=== PATIENT | female | born 1945 | race Caucasian/White ===

== ENCOUNTER 2020-06-12 05:58 | Observation (INO) | payer MEDICARE ==
[2020-06-12 07:08] LABS: ABSOLUTE BASOPHILS # (AUTO) 0.1 10^3/uL (0.0-0.2); ABSOLUTE EOSINOPHILS # (AUTO) 0.4 10^3/uL (0.0-0.6); ABSOLUTE LYMPHOCYTES (AUTO) 3.8 10^3/uL (0.5-4.7); ABSOLUTE NEUT (AUTO) 8.6 10^3/uL (1.7-8.2); BASOPHILS % (AUTO) 0.6 % (0-2); EOSINOPHILS % (AUTO) 2.6 % (0-6); HEMATOCRIT 37.3 % (36.0-47.0); HEMOGLOBIN 12.7 g/dL (12.0-15.5); LYMPHOCYTES % (AUTO) 27.3 % (13-45); MEAN CORPUSCULAR HEMOGLOBIN 29.1 pg (27.0-33.4); MEAN CORPUSCULAR VOLUME 86 fl (80-97); MONOCYTES % (AUTO) 7.1 % (3-13); PLATELET COUNT 464 10^3/uL (150-450); RED BLOOD COUNT 4.35 10^6/uL (3.72-5.28); RED CELL DISTRIBUTION WIDTH 13.4 % (11.5-14.0); SEGMENTED NEUTROPHILS % (AUTO) 62.4 % (42-78); TOTAL CELLS COUNTED % (AUTO) 100 %; WHITE BLOOD COUNT 13.8 10^3/uL (4.0-10.5)
[2020-06-12] MEDS: NORMAL SALINE 1000 ML 1,000 ML IV PRN ×3 (07:13→20:33)
[2020-06-12 07:15] LABS: INTERNATIONAL RATION (INR) 0.87; PROTHROMBIN TIME 12.1 SEC (11.4-15.4)
--- NOTE | 2020-06-12 07:15 | ER Document Report ---
ED General - General Chief Complaint: Rectal Bleeding Stated Complaint: BLOODY STOOLS Time Seen by Provider: 06/12/20 07:09 - HPI Notes: Chief complaint: Rectal bleeding and fainting History of present illness: 75-year-old female with history of diabetes and hypertension and no known prior history of gastrointestinal bleeding awakened about 1 hour ago experiencing bright red rectal bleeding and noting some mild cramping left lower quadrant abdomen. She attempted to get to the bathroom and while bleeding a large amount she momentarily fainted and was caught by her . She continues to feel weak and has been brought to the emergency department. She has ongoing bleeding. Patient is not on any type of anticoagulation other than a daily 81 mg aspirin. Patient states that she had a colonoscopy 11 years ago and was told at that time that she had hemorrhoids with no other abnormality identified. She denies any history of peptic ulcer disease. She has had no nausea vomiting or epigastric pain. She has not been running a fever. She takes a Metformin for her diabetes and is on lisinopril for hypertension. She is also on meloxicam for osteoarthritis and says she has been on this me dicine for several years. She is allergic to penicillin and sulfa. - Related Data Allergies/Adverse Reactions: Penicillins Allergy (Verified 06/12/20 06:16) Sulfa (Sulfonamide Antibiotics) Allergy (Verified 06/12/20 06:16) Home Medications: METFORMIN. MELOXICAM. LISINIPRIL. BABY ASP. FLEXIRIL Past Medical History - General Information source: Patient, Relative - Social History Smoking Status: Current Every Day Smoker Frequency of alcohol use: None Drug Abuse: None Lives with: Spouse/Significant other Family History: Reviewed & Not Pertinent - Past Medical History Cardiac Medical History: Reports: Hx Heart Attack, Hx Hypertension Pulmonary Medical History: Reports: None Endocrine Medical History: Reports: Hx Diabetes Mellitus Type 2 Malignancy Medical History: Reports: None GI Medical History: Reports: None Musculoskeletal Medical History: Reports Hx Arthritis Past Surgical History: Reports: Hx Appendectomy, Hx Cholecystectomy, Hx Hysterectomy Review of Systems - Review of Systems Notes: Constitutional: Negative for fever. HENT: Negative for sore throat. Eyes: Negative for visual changes. Cardiovascular: Negative for chest pain. Respiratory: Negative for shortness of breath. Gastrointestinal: As per HPI. Genitourinary: Negative for dysuria. Musculoskeletal: Negative for back pain. Skin: Negative for rash. Neurological: As per HPI. 10 point ROS negative except as marked above and in HPI. Physical Exam - Vital signs Vitals: Temp Pulse Resp BP Pulse Ox 97.5 F 129 H 22 H 137/85 H 94 06/12/20 06:09 06/12/20 06:09 06/12/20 06:09 06/12/20 06:09 06/12/20 06:09 Patient's initial blood pressure when I saw her was 88/60. - Notes Notes: GENERAL: Mildly obese female patient approximately stated age who appears pale and diaphoretic. SKIN: Pale and diaphoretic. Good turgor no rashes. HEAD: Normocephalic atraumatic. EYES: PERRLA. EOMI. Conjunctivae and sclerae clear. EARS: CANALS AND TMS CLEAR. NOSE: CLEAR. MOUTH: Moist mucosa. Good dentition. No stridor or edema. No drooling. NECK: Supple. No masses or thyromegaly. No adenopathy. Carotids 2+ without bruits. No JVD. BACK: Symmetrical without tenderness. CHEST: Tachycardic. Respirations unlabored. Breath sounds clear and symmetrical. HEART: Regular rhythm. No murmur gallop or rub. ABDOMEN: Mild tenderness left lower quadrant. Soft without masses, organomegaly or rebound. Bowel sounds normally active. No bruits. Rectal: Maroon stool present EXTREMITIES: No edema. No calf tenderness. Cap refill less than 1.5 seconds. Dorsalis pedis and posterior tibial pulses 3+ and symmetrical. NEUROLOGICAL: GCS 15. Alert and oriented x3. Normal gait. Fluent speech. Cranial nerves II through XII intact. Sensorimotor and cerebellar normal. Normal tone. PSYCHIATRIC: Appropriate affect. Course - Re-evaluation Re-evalutation: 06/12/20 11:00 Elderly lady with sudden onset rectal bleeding this morning. She had a brief syncopal episode at home. She had small amount of dark blood in the rectum on exam here and had some mild tenderness left lower quadrant. She was hypotensive and tachycardic when she got here. We placed 2 large-bore IVs and gave her 2 L of normal saline. Her hemodynamic status stabilized immediately with this. Her initial hemoglobin was 13.4 g with a normal platelet count and a normal INR. She got a CTA abdomen/pelvis which showed no obvious ongoing bleeding and no other significant abnormalities. Case was discussed with surgeon electronic calibration technician Dr. Sexton and he was formally consulted. He is seen the patient and will plan to do a colonoscopy within the next 24 hours. Case is also been discussed with hospitalist on-call Dr. Powell who will admit to [facility]. Findings, clinical impression and plan of treatment have been discussed with patient/family. Understanding of current findings and recommendations has been acknowledged by them and there is agreement regarding disposition and follow-up. - Vital Signs Vital signs: Temp Pulse Resp BP Pulse Ox 97.5 F 106 H 18 109/71 96 06/12/20 06:26 06/12/20 06:50 06/12/20 08:01 06/12/20 08:01 06/12/20 08:01 - Laboratory Results Result Diagrams: 06/12/20 06:51 06/12/20 06:51 Laboratory Results Interpreted: 06/12/20 06/12/20 06:51 06:51 WBC 13.8 H Plt Count 464 H Absolute Neuts (auto) 8.6 H Sodium 134.2 L Glucose 178 H Critical Laboratory Results Reviewed: No Critical Results - Radiology Results Radiology Results Interpreted: 06/12/20 11:02 Abdomen/Pelvis CTA 06/12/20 07:07 IMPRESSION: No CT evidence of active GI bleeding Sigmoid colon diverticulosis without CT signs of acute diverticulitis Post cholecystectomy appendectomy and hysterectomy. Chest X-Ray 06/12/20 07:10 IMPRESSION: NO ACUTE RADIOGRAPHIC FINDING IN THE CHEST. Critical Radiology Results Reviewed: No Critical Results - EKG Interpretation by Me Additional EKG results interpreted by me: 06/12/20 11:03 Twelve-lead EKG reviewed by me contemporaneously: Indication for study: Syncope Rhythm: Normal sinus Rate: 97 Intervals: Normal intervals QRS axis: -[address]/T wave changes: None Comparison with prior tracing: None Interpretation: Normal tracing Discharge - Discharge Clinical Impression: Rectal bleeding, Sigmoid diverticulosis Condition: Fair Disposition: ADMITTED INPATIENT Admitting Provider: Sherry (Hospitalist) Unit Admitted: [facility]
[2020-06-12 07:23] LABS: ALBUMIN 3.8 g/dL (3.5-5.0); ALKALINE PHOSPHATASE 80 U/L (38-126); ANION GAP 7 (5-19); ASPARTATE AMINO TRANSFERASE 27 U/L (14-36); BILIRUBIN,DIRECT 0.2 mg/dL (0.0-0.4); BILIRUBIN,TOTAL 0.3 mg/dL (0.2-1.3); BLOOD UREA NITROGEN 12 mg/dL (7-20); CARBON DIOXIDE 22 mmol/L (22-30); CHLORIDE 105 mmol/L (98-107); GLUCOSE 178 mg/dL (75-110); POTASSIUM 4.8 mmol/L (3.6-5.0); TOTAL PROTEIN 7.3 g/dL (6.3-8.2)
--- NOTE | 2020-06-12 08:14 | RADIOLOGY REPORT (SQ) ---
EXAM DESCRIPTION: CHEST SINGLE VIEW IMAGES COMPLETED DATE/TIME: 06/12/2020 7:32 am REASON FOR STUDY: syncope COMPARISON: None. EXAM PARAMETERS: NUMBER OF VIEWS: One view. TECHNIQUE: Single frontal radiographic view of the chest acquired. RADIATION DOSE: NA LIMITATIONS: None. FINDINGS: LUNGS AND PLEURA: No opacities, masses or pneumothorax. No pleural effusion. MEDIASTINUM AND HILAR STRUCTURES: No masses. Contour normal. HEART AND VASCULAR STRUCTURES: Heart normal in size. Normal vasculature. BONES: No acute findings. HARDWARE: None in the chest. OTHER: No other significant finding. IMPRESSION: NO ACUTE RADIOGRAPHIC FINDING IN THE CHEST. TECHNICAL DOCUMENTATION: JOB ID: [id number] 2010 20:20 [employer]- All Rights Reserved Reading location - IP/workstation name: [email or web address]
--- NOTE | 2020-06-12 09:02 | RADIOLOGY REPORT (SQ) ---
EXAM DESCRIPTION: CTA ABDOMEN/PELVIS W WO IMAGES COMPLETED DATE/TIME: 06/12/2020 8:30 am REASON FOR STUDY: Rectal bleeding COMPARISON: AP chest 06/12/2020 TECHNIQUE: CT scan of the abdomen and pelvis performed with intravenous contrast using helical scann ing technique with dynamic intravenous contrast injection. Images reviewed with lung, soft tissue, an d bone windows. Reconstructed coronal and sagittal MPR images reviewed. All images stored on PACS. Advanced 3D imaging as volume rendering, MIPS, SSD performed? yes All CT scanners at this facility use dose modulation, iterative reconstruction, and/or weight based d osing when appropriate to reduce radiation dose to as low as reasonably achievable (ALARA). [facility]: Dose Right [facility]: CareDose [facility]: Dose Right [facility]: Teradose 4D [facility]: BitWave CONTRAST TYPE AND DOSE: contrast/concentration: Isovue 350.00 mmol/ml; Total Contrast Delivered: 100 .0 ml; Total Saline Delivered: 63.0 ml RENAL FUNCTION: Creatinine 0.62 RADIATION DOSE: 68 mGy LIMITATIONS: None. FINDINGS: NON-CONTRASTED IMAGING: Not performed. POST-CONTRAST IMAGING: AORTA AND VESSELS: Infrarenal abdominal aorta 3 cm diameter. No dissection. Renal arteries, SMA, agus ac without stenosis. MILLICENT is patent. Proximal common iliac arteries, external iliac artery, common femoral arteries are patent. LUNG BASES: No significant findings. No nodules or infiltrates. LIVER: Normal size. No masses or dilated ducts. SPLEEN: Normal size. No focal lesions. PANCREAS: No masses. No significant calcifications. No adjacent inflammation or peripancreatic fluid collections. Pancreatic duct not dilated. GALLBLADDER: Gallbladder surgically absent ADRENAL GLANDS: No significant masses or asymmetry. RIGHT KIDNEY AND URETER: No mass, calculi or urinary tract obstruction. LEFT KIDNEY AND URETER: No mass, calculi or urinary tract obstruction. RETROPERITONEUM: No retroperitoneal adenopathy, hemorrhage or masses. BOWEL AND PERITONEAL CAVITY: There is no CT evidence of active GI bleeding at the time of the CT scan . No extravasation into the lumen is identified. Heavy burden of sigmoid colon diverticuli without CT signs of acute diverticulitis. No CT evidence of bowel obstruction or free intraperitoneal air or free fluid. Moderate stool in the colon. APPENDIX: Not visualized. No right lower quadrant inflammatory change. Patient appendix is surgical ly absent ABDOMINAL WALL: No masses. No hernias. PELVIS: Post hysterectomy. Urinary bladder unremarkable. No free fluid. No adenopathy. BONY STRUCTURES: No significant or acute findings. 3-D IMAGING: Confirms the above findings. OTHER: No other significant finding. IMPRESSION: No CT evidence of active GI bleeding Sigmoid colon diverticulosis without CT signs of acute diverticulitis Post cholecystectomy appendectomy and hysterectomy. TECHNICAL DOCUMENTATION: JOB ID: [id number] Quality ID # [id number]: Final reports with documentation of one or more dose reduction techniques (e.g., Au tomated exposure control, adjustment of the mA and/or kV according to patient size, use of iterative reconstruction technique) 2010 [employer]- All Rights Reserved Reading location - IP/workstation name: [email or web address]
[2020-06-12] MEDS ORDERED: NORMAL SALINE 1000 ML 1,000 ML IV ONE (10:32)
--- NOTE | 2020-06-12 10:58 | PDOC CONSULTATION ---
Consultation Consult Date: 06/12/20 Provider Consulted: JEEVAN SWENSON Consult reason:: lower gastrointestinal bleeding History of Present Illness Admission Date/PCP: BRIDGER RIVERS MD History of Present Illness: VERONICA BELLAMY is a 75 year old female obese, with diet-controlled diabetes, hypertension, history of colon diverticulitis in the days, colonoscopy about 10 years ago significant for sigmoidal diverticulosis, who presents to the emergency room with a complaint of sudden onset of rectal bleeding with candace blood and black clots. She reports left-sided abdominal discomfort, no nausea vomiting, no weight loss, no fever or chills. A CTA scan of the abdomen pelvis has been done which reveals no active bleeding, sigmoid diverticulosis without complications. Her blood work reveals a white blood cell count of 13.8 with H&H of 12.7 and 37.3, respectively. Her PT PTT and INR within normal limits Past Medical History Cardiac Medical History: Reports: Myocardial Infarction, Hypertension Pulmonary Medical History: Reports: None Endocrine Medical History: Reports: Diabetes Mellitus Type 2 Malignancy Medical History: Reports: None GI Medical History: Reports: None Musculoskeltal Medical History: Reports: Arthritis Past Surgical History Past Surgical History: Reports: Appendectomy, Cholecystectomy, Hysterectomy Social History Lives with: Spouse/Significant other Smoking Status: Current Every Day Smoker Family History Family History: Reviewed & Not Pertinent Parental Family History Reviewed: No Children Family History Reviewed: No Sibling(s) Family History Reviewed.: No Medication/Allergy Allergies/Adverse Reactions: Penicillins Allergy (Verified 06/12/20 06:16) Sulfa (Sulfonamide Antibiotics) Allergy (Verified 06/12/20 06:16) Physical Exam Vital Signs: Temp Pulse Resp BP Pulse Ox 97.5 F 106 H 18 109/71 96 06/12/20 06:26 06/12/20 06:50 06/12/20 08:01 06/12/20 08:01 06/12/20 08:01 Intake & Output 06/11/20 06/12/20 06/13/20 06:59 06:59 06:59 Intake Total 1999 Balance 1999 Weight 79 kg General appearance: PRESENT: no acute distress, obese, well-developed Eye exam: PRESENT: EOMI Mouth exam: PRESENT: moist, neck supple Teeth exam: PRESENT: edentulous Neck exam: PRESENT: full ROM Respiratory exam: PRESENT: clear to auscultation roya Cardiovascular exam: PRESENT: RRR GI/Abdominal exam: PRESENT: soft, other - Not distended, not tender, hypoactive bowel sounds Rectal exam: PRESENT: deferred Extremities exam: PRESENT: full ROM Musculoskeletal exam: PRESENT: full ROM Neurological exam: PRESENT: alert, awake, CN II-XII grossly intact Psychiatric exam: PRESENT: appropriate affect Skin exam: PRESENT: warm Results Laboratory Results: 06/12/20 06:51 06/12/20 06:51 06/12/20 06/12/20 06/12/20 06:51 06:51 06:51 WBC 13.8 H RBC 4.35 Hgb 12.7 Hct 37.3 MCV 86 MCH 29.1 MCHC 34.0 RDW 13.4 Plt Count 464 H Seg Neutrophils % 62.4 Sodium 134.2 L Potassium 4.8 Chloride 105 Carbon Dioxide 22 Anion Gap 7 BUN 12 Creatinine 0.62 Est GFR ( Amer) > 60 Glucose 178 H Calcium 9.0 Total Bilirubin 0.3 AST 27 Alkaline Phosphatase 80 Total Protein 7.3 Albumin 3.8 Blood Type A POSITIVE Antibody Screen NEGATIVE 06/12/20 06:51 Troponin I < 0.012 Impressions: Abdomen/Pelvis CTA 06/12/20 07:07 IMPRESSION: No CT evidence of active GI bleeding Sigmoid colon diverticulosis without CT signs of acute diverticulitis Post cholecystectomy appendectomy and hysterectomy. Chest X-Ray 06/12/20 07:10 IMPRESSION: NO ACUTE RADIOGRAPHIC FINDING IN THE CHEST. Assessment & Plan - Diagnosis (1) Sigmoid diverticulosis Is this a current diagnosis for this admission?: Yes (2) Lower gastrointestinal bleeding Is this a current diagnosis for this admission?: Yes - Plan Summary Plan Summary: Assessment: Lower gastrointestinal bleeding, sudden onset this morning CTA of the abdomen pelvis reveals no active bleeding; however, there is sigmoid diverticulosis without complication History of sigmoid diverticulitis in the 80s Normal regulation profile H&H 12.7 and 37.3, respectively Exam of the abdomen is benign Questionable history of heart condition about 11 years ago with angina Plan: Covid test EKG preop Cardiac clearance for colonoscopy by the hospitalist service Clear liquid diet only N.p.o. after midnight Prep with GoLYTELY and Dulcolax IV fluids Colonoscopy with biopsy tomorrow and IV sedation, procedure, risks, benefits, complications, alternatives, discussed with the patient, she understands all the above, her questions were answered to her satisfaction's, she decides to proceed.
[2020-06-12 11:34] LABS: ABSOLUTE BASOPHILS # (AUTO) 0.1 10^3/uL (0.0-0.2); ABSOLUTE EOSINOPHILS # (AUTO) 0.1 10^3/uL (0.0-0.6); ABSOLUTE LYMPHOCYTES (AUTO) 1.9 10^3/uL (0.5-4.7); ABSOLUTE MONOCYTES (AUTO) 0.4 10^3/uL (0.1-1.4); ABSOLUTE NEUT (AUTO) 9.4 10^3/uL (1.7-8.2); EOSINOPHILS % (AUTO) 0.6 % (0-6); HEMATOCRIT 33.5 % (36.0-47.0); HEMOGLOBIN 11.6 g/dL (12.0-15.5); LYMPHOCYTES % (AUTO) 15.7 % (13-45); MEAN CORPUSCULAR HEMOGLOBIN 29.7 pg (27.0-33.4); MEAN CORPUSCULAR HGB CONC 34.5 g/dL (32.0-36.0); MEAN CORPUSCULAR VOLUME 86 fl (80-97); MONOCYTES % (AUTO) 3.4 % (3-13); PLATELET COUNT 378 10^3/uL (150-450); RED BLOOD COUNT 3.91 10^6/uL (3.72-5.28); RED CELL DISTRIBUTION WIDTH 13.2 % (11.5-14.0); SEGMENTED NEUTROPHILS % (AUTO) 79.3 % (42-78); TOTAL CELLS COUNTED % (AUTO) 100 %; WHITE BLOOD COUNT 11.9 10^3/uL (4.0-10.5)
[2020-06-12] MEDS ORDERED: NORMAL SALINE 1000 ML 1,000 ML IV PRN (12:54)
[2020-06-12] MEDS ORDERED: MAG HYDROX/AL HYDROX/SIMETH SUSP 30 ML UDCUP PO PRN (12:54)
[2020-06-12] MEDS ORDERED: ONDANSETRON HCL INJ/PF 4 MG/2 ML SDV IV PRN (12:54)
[2020-06-12] MEDS ORDERED: ACETAMINOPHEN 325 MG TABLET PO PRN (12:54)
[2020-06-12] MEDS ORDERED: ALBUTEROL SULFATE 0.083% NEB 2.5 MG/3 ML AMPUL NEB PRN (12:54)
[2020-06-12] MEDS ORDERED: NICOTINE 14 MG/24 HR PATCH.TD24 TD PRN (13:04)
[2020-06-12] MEDS ORDERED: DEXTROSE 40% GEL 15 GM TUBE PO PRN ×2 (13:17)
[2020-06-12] MEDS ORDERED: DEXTROSE 50%-WATER 25 GM/50 ML DISP.SYRIN IV PRN ×2 (13:17)
[2020-06-12] MEDS ORDERED: GLUCAGON,HUMAN RECOMB 1 MG INJ IM PRN (13:17)
--- NOTE | 2020-06-12 13:17 | PDOC H&P ---
History of Present Illness Admission Date/PCP: 06/12/20 11:47 BRIDGER RIVERS MD Patient complains of: Hematochezia History of Present Illness: VERONICA BELLAMY is a 75 year old female with history of chronic constipation, internal hemorrhoids, diabetes mellitus type 2, hypertension, arthritis, who presents to the hospital with complaint of hematochezia starting this morning around 4:30 AM. During this episode she had incontinence on the way to her bathroom and noted that it was all blood. By the time she got to the toilet she had some stool in there but mostly red blood. She had another episode about 30 minutes after which was only blood. Subsequently came to the emergency department. In the emergency department, she had a third episode of bloody b owel movement. She was also noted to be tachycardic. Following the episodes she actually syncopized briefly. She denies any prior history of bloody bowel movements. She had a colonoscopy about 11 years ago which revealed internal hemorrhoids but nothing else significant. She is not on any anticoagulants. She just takes a baby aspirin daily. She denies any history of heart disease but states she had a "heart event" which from her description sounds like hypertensive emergency many years back. States she had a stress test at the time but never required a cath or any PCI. Past Medical History Cardiac Medical History: Reports: Hypertension Pulmonary Medical History: Reports: None Endocrine Medical History: Reports: Diabetes Mellitus Type 2 Malignancy Medical History: Reports: None GI Medical History: Reports: None Musculoskeltal Medical History: Reports: Arthritis Past Surgical History Past Surgical History: Reports: Appendectomy, Cholecystectomy, Hysterectomy Social History Lives with: Spouse/Significant other Smoking Status: Current Every Day Smoker Electronic Cigarette use?: No Frequency of Alcohol Use: None Hx Recreational Drug Use: No - Advance Directive Resuscitation Status: Full Code Family History Family History: DM, Hypertension Parental Family History Reviewed: Yes Children Family History Reviewed: Yes Sibling(s) Family History Reviewed.: Yes Medication/Allergy Home Medications: Aspirin [Aspir-Low] 81 mg PO DAILY 06/12/20 Lisinopril [Zestril] 2.5 mg PO DAILY 06/12/20 Meloxicam [Mobic 7.5 mg Tablet] 7.5 mg PO DAILY 06/12/20 Metformin HCl 500 mg PO BID 06/12/20 Allergies/Adverse Reactions: Latex, Natural Rubber Allergy (Verified 06/12/20 11:12) Penicillins Allergy (Verified 06/12/20 06:16) Sulfa (Sulfonamide Antibiotics) Allergy (Verified 06/12/20 06:16) Review of Systems Constitutional: ABSENT: fatigue, fever(s) Eyes: ABSENT: visual disturbances Ears: ABSENT: hearing changes Nose, Mouth, and Throat: ABSENT: headache(s) Cardiovascular: ABSENT: chest pain Respiratory: ABSENT: cough, dyspnea Gastrointestinal: PRESENT: constipation, hematochezia. ABSENT: hematemesis, melena, nausea, vomiting Genitourinary: ABSENT: hematuria Musculoskeletal: PRESENT: joint swelling Integumentary: ABSENT: diaphoresis Neurological: PRESENT: syncope Psychiatric: ABSENT: hallucinations Endocrine: ABSENT: polyuria Allergic/Immunologic: PRESENT: seasonal rhinorrhea Physical Exam Vital Signs: Temp Pulse Resp BP Pulse Ox 97.5 F 106 H 18 109/71 96 06/12/20 06:26 06/12/20 06:50 06/12/20 08:01 06/12/20 08:01 06/12/20 08:01 Intake & Output 06/11/20 06/12/20 06/13/20 06:59 06:59 06:59 Intake Total 1999 Balance 1999 Weight 79 kg General appearance: PRESENT: no acute distress, cooperative Head exam: PRESENT: normocephalic Mouth exam: PRESENT: neck supple Neck exam: ABSENT: JVD Respiratory exam: PRESENT: clear to auscultation roya, symmetrical, unlabored. ABSENT: tachypnea, wheezes Cardiovascular exam: PRESENT: +S1, +S2, tachycardia. ABSENT: irregular rhythm GI/Abdominal exam: PRESENT: soft, tenderness - Left lower quadrant. ABSENT: rebound, rigid Extremities exam: PRESENT: pedal edema Neurological exam: PRESENT: alert, awake, oriented to person, oriented to place, oriented to time, oriented to situation Psychiatric exam: ABSENT: agitated, anxious Focused psych exam: ABSENT: pressured speech Skin exam: ABSENT: cyanosis, dry, jaundice Results Laboratory Results: 06/12/20 11:09 06/12/20 06:51 06/12/20 06/12/20 06/12/20 06:51 06:51 06:51 WBC 13.8 H RBC 4.35 Hgb 12.7 Hct 37.3 MCV 86 MCH 29.1 MCHC 34.0 RDW 13.4 Plt Count 464 H Seg Neutrophils % 62.4 Sodium 134.2 L Potassium 4.8 Chloride 105 Carbon Dioxide 22 Anion Gap 7 BUN 12 Creatinine 0.62 Est GFR ( Amer) > 60 Glucose 178 H Calcium 9.0 Total Bilirubin 0.3 AST 27 Alkaline Phosphatase 80 Total Protein 7.3 Albumin 3.8 Blood Type A POSITIVE Antibody Screen NEGATIVE 06/12/20 11:09 WBC 11.9 H RBC 3.91 Hgb 11.6 L Hct 33.5 L MCV 86 MCH 29.7 MCHC 34.5 RDW 13.2 Plt Count 378 Seg Neutrophils % 79.3 H Sodium Potassium Chloride Carbon Dioxide Anion Gap BUN Creatinine Est GFR ( Amer) Glucose Calcium Total Bilirubin AST Alkaline Phosphatase Total Protein Albumin Blood Type Antibody Screen 06/12/20 06:51 Troponin I < 0.012 Impressions: Abdomen/Pelvis CTA 06/12/20 07:07 IMPRESSION: No CT evidence of active GI bleeding Sigmoid colon diverticulosis without CT signs of acute diverticulitis Post cholecystectomy appendectomy and hysterectomy. Chest X-Ray 06/12/20 07:10 IMPRESSION: NO ACUTE RADIOGRAPHIC FINDING IN THE CHEST. Assessment and Plan - Diagnosis (1) Lower gastrointestinal bleeding Is this a current diagnosis for this admission?: Yes Plan: I suspect patient is having a diverticular bleed or could be having a hemorrhoidal bleed as she has known history of internal hemorrhoids. CTA abd/pel shows no active extravasation. Sigmoid diverticulosis noted also mildly tender around that area. She will need better control of her chronic constipation -check TSH in the a.m. Surgery evaluated and planning for colonoscopy in the morning. EKG and chest x-ray reviewed which are unremarkable. Patient is a low risk for major cardiac event for this low risk procedure. We will place on IV fluid hydration and repeat CBC later today. I expect hemog lobin to drop. Typed and screened. Coags are unremarkable. Surgery ordered bowel prep. N.p.o. past midnight. (2) Syncope Qualifiers: Syncope type: unspecified Qualified Code(s): R55 - Syncope and collapse Is this a current diagnosis for this admission?: Yes Plan: Likely secondary to orthostasis from GI bleed. Has received IV fluids in the ER. Heart rate is improved now. Appears comfortable seated in bed. Will continue on continuous IV fluid hydration. Monitor in the IMCU. Monitor H&H. (3) Diabetes mellitus type 2 in obese Is this a current diagnosis for this admission?: Yes Plan: Reports that her last A1c was around 6. Takes metformin at home. Hold Metformin for now given contrast. SSI and Accu-Cheks. (4) Tobacco dependence Is this a current diagnosis for this admission?: Yes Plan: Nicotine patch offered (5) Obesity (BMI 30-39.9) Is this a current diagnosis for this admission?: Yes - Time Time Spent with patient: 35 or more minutes Anticipated Discharge Disposition: Home, Self Care Anticipated Discharge Timeframe: within 48 hours
--- NOTE | 2020-06-12 13:23 | ADVANCED CARE ---
- Diagnosis (1) Lower gastrointestinal bleeding Diagnosis Current: Yes (2) Syncope Diagnosis Current: Yes Resuscitation Status: Full Code Discussion: Discussed with patient and patient's . We discussed CODE STATUS. She wants to be full code. She is okay with intubation even in the absence of cardiac arrest. Also open to having procedures done to help mitigate her current condition. Time Spent: 17mins
[2020-06-12] MEDS ORDERED: PEG 3350/NA SULF,BICARB,CL/KCL 4000 ML PO ONE ×2 (16:00→22:00)
[2020-06-12] MEDS ORDERED: BISACODYL 5 MG TABEC PO ONE (16:00)
[2020-06-12] MEDS: INSULIN LISPRO 100 UNIT/ML 3 ML VIAL SUBCUT SCH (17:04)
[2020-06-12 17:10] LABS: HEMATOCRIT 33.5 % (36.0-47.0); HEMOGLOBIN 11.5 g/dL (12.0-15.5); MEAN CORPUSCULAR HEMOGLOBIN 29.5 pg (27.0-33.4); MEAN CORPUSCULAR HGB CONC 34.4 g/dL (32.0-36.0); MEAN CORPUSCULAR VOLUME 86 fl (80-97); PLATELET COUNT 331 10^3/uL (150-450); RED CELL DISTRIBUTION WIDTH 13.3 % (11.5-14.0)
[2020-06-12] MEDS ORDERED: DOCUSATE SODIUM 100 MG CAPSULE PO ONE ×2 (18:30→20:30)
--- NOTE | 2020-06-12 23:48 | EKG REPORT ---
SEVERITY:- NORMAL ECG - SINUS RHYTHM : Confirmed by: Kevin Hill 12-Jun-2020 23:46:12
[2020-06-13] MEDS: INSULIN LISPRO 100 UNIT/ML 3 ML VIAL SUBCUT SCH ×3 (00:15→12:02)
[2020-06-13 05:14] LABS: HEMATOCRIT 32.2 % (36.0-47.0); HEMOGLOBIN 11.2 g/dL (12.0-15.5); MEAN CORPUSCULAR HEMOGLOBIN 29.7 pg (27.0-33.4); MEAN CORPUSCULAR HGB CONC 34.7 g/dL (32.0-36.0); MEAN CORPUSCULAR VOLUME 86 fl (80-97); PLATELET COUNT 350 10^3/uL (150-450); RED BLOOD COUNT 3.76 10^6/uL (3.72-5.28); WHITE BLOOD COUNT 9.3 10^3/uL (4.0-10.5)
[2020-06-13 05:40] LABS: ANION GAP 8 (5-19); BLOOD UREA NITROGEN 10 mg/dL (7-20); CALCIUM 8.6 mg/dL (8.4-10.2); CARBON DIOXIDE 24 mmol/L (22-30); CHLORIDE 107 mmol/L (98-107); GLUCOSE 115 mg/dL (75-110); PHOSPHORUS 3.9 mg/dL (2.5-4.5); POTASSIUM 4.4 mmol/L (3.6-5.0)
[2020-06-13] MEDS ORDERED: NA PHOS,M-B/NA PHOS,DI-BA (ADULT) 133 ML ENEMA PR ONE (06:00)
[2020-06-13] MEDS: NORMAL SALINE 1000 ML 1,000 ML IV PRN (06:31)
[2020-06-13] MEDS ORDERED: PROPOFOL INJ 200 MG/20 ML VIAL IV ONE ×2 (07:32→10:11)
[2020-06-13] MEDS ORDERED: LISINOPRIL 5 MG TABLET PO SCH (10:00)
--- NOTE | 2020-06-13 11:24 | Operative Report ---
Operative Report DATE OF SURGERY: 06/13/20 PREOPERATIVE DIAGNOSIS: Hematochezia, history of diverticulosis, anemia POSTOPERATIVE DIAGNOSIS: Sigmoid diverticulosis, sessile rectal polyp at 15 cm from anal verge OPERATION: Colonoscopy to cecum, polypectomy at 15 cm from an verge SURGEON: JEEVAN SWENSON ANESTHESIA: Moderate Sedation TISSUE REMOVED OR ALTERED: None COMPLICATIONS: None ESTIMATED BLOOD LOSS: Not applicable INTRAOPERATIVE FINDINGS: Small less than the 0.5 cm sessile rectal polyp at 15 cm from the anal verge; multiple scattered diverticuli of the sigmoid colon PROCEDURE: The colonoscopy was performed in surgery], the patient was placed in the lateral decubitus, and IV sedation was provided by the anesthesiologist. The scope was inserted into the rectum and the several segments of the colon up to the cecum. The preparation was good: no masses, strictures, mucosal changes, were noted. At the level of the rectum, 1 small less than 0.5 cm sessile polyp with smooth surface was identified, it was snared but because of its small size it was completely obliterated. The polyp site was then cauterized at the base. Several scattered diverticuli were identified in the sigmoid colon. No active bleeding was noted. The scope was could not be retroflexed in the rectum because of the lack of rectal muscle tone. However, no lesions were identified and no hemorrhoids seen. The scope was then slowly withdrawn from the cecum to rectum for a duration of approximately 7 minutes and extracted from the rectum. The patient tolerated procedure well and transferred to the recovery room in satisfactory conditions.
--- NOTE | 2020-06-13 11:26 | Progress Note ---
Provider Note Provider Note: No scope to cecum done. No complications. Few scattered sigmoid diverticuli identified. No active bleeding noted. Small polyp less than half centimeter in the rectum was identified but could not be retrieved because of small size. Plan: Patient can be discharged to home anytime Resume diet and medications Patient to obtain a second look colonoscopy in 2 years I will sign off. Please call me with questions
[2020-06-13 14:21] VITALS: BP 134/73
--- NOTE | 2020-06-15 19:09 | PDOC DISCHARGE SUMMARY ---
Impression - Admit/DC Date/PCP Admission Date/Primary Care Provider: 06/12/20 11:47 BRIDGER RIVERS MD Discharge Date: 06/15/20 - Assessment Summary: (1) Lower gastrointestinal bleeding Is this a current diagnosis for this admission?: Yes Plan: I suspect patient is having a diverticular bleed or could be having a hemorrhoidal bleed as she has known history of internal hemorrhoids. CTA abd/pel shows no active extravasation. Sigmoid diverticulosis noted also mildly tender around that area. She will need better control of her chronic constipation -check TSH in the a.m. Surgery evaluated and planning for colonoscopy in the morning. EKG and chest x-ray reviewed which are unremarkable. Patient is a low risk for major cardiac event for this low risk procedure. We will place on IV fluid hydration and repeat CBC later today. I expect hemoglobin to drop. Typed and screened. Coags are unremarkable. Surgery ordered bowel prep. N.p.o. past midnight. (2) Syncope Qualifiers: Syncope type: unspecified Qualified Code(s): R55 - Syncope and collapse Is this a current diagnosis for this admission?: Yes Plan: Likely secondary to orthostasis from GI bleed. Has received IV fluids in the ER. Heart rate is improved now. Appears comfortable seated in bed. Will continue on continuous IV fluid hydration. Monitor in the IMCU. Monitor H&H. (3) Diabetes mellitus type 2 in obese Is this a current diagnosis for this admission?: Yes Plan: Reports that her last A1c was around 6. Takes metformin at home. Hold Metformin for now given contrast. SSI and Accu-Cheks. (4) Tobacco dependence Is this a current diagnosis for this admission?: Yes Plan: Nicotine patch offered (5) Obesity (BMI 30-39.9) Is this a current diagnosis for this admission?: Yes - Additional Information Resuscitation Status: Full Code Discharge Diet: As Tolerated Discharge Activity: Activity As Tolerated Referrals: BRIDGER RIVERS MD [Primary Care Provider] - 06/25/20 2:00 pm Prescriptions: Lactulose 10 gm PO DAILY 7 Days #7 solution Pantoprazole Sodium [Protonix [address] Tablet] 40 mg PO NOW 60 Days #60 tablet.dr Home Medications: Aspirin [Aspir-Low] 81 mg PO DAILY 06/12/20 Lisinopril [Zestril] 2.5 mg PO DAILY 06/12/20 Metformin HCl 500 mg PO BID 06/12/20 Lactulose 10 gm PO DAILY 7 Days #7 solution 06/13/20 Pantoprazole Sodium [Protonix [address] Tablet] 40 mg PO NOW 60 Days #60 tablet. 06/13/20 History of Present Illiness History of Present Illness: VERONICA BELLAMY is a 75 year old female, with history of chronic constipation, internal hemorrhoids, diabetes mellitus type 2, hypertension, arthritis, who presents to the hospital with complaint of hematochezia starting this morning around 4:30 AM. During this episode she had incontinence on the way to her bathroom and noted that it was all blood. By the time she got to the toilet she had some stool in there but mostly red blood. She had another episode about 30 minutes after which was only blood. Subsequently came to the emergency department. In the emergency department, she had a third episode of bloody bowel movement. She was also noted to be tachycardic. Following the episodes she actually syncopized briefly. She denies any prior history of bloody bowel movements. She had a colonoscopy about 11 years ago which revealed internal hemorrhoids but nothing else significant. She is not on any anticoagulants. She just takes a baby aspirin daily. She denies any history of heart disease but states she had a "heart event" which from her description sounds like hypertensive emergency many years back. States she had a stress test at the time but never required a cath or any PCI. Hospital Course Hospital Course: Patient underwent colonoscopy Few scattered sigmoid diverticuli identified. No active bleeding noted. Small polyp less than half centimeter in the rectum was identified but could not be retrieved because of small size. Patient did well post colonoscopy and was discharged on the same day with protonix. Physical Exam Vital Signs: Temp Pulse Resp BP Pulse Ox 98.2 F 79 18 134/73 H 94 06/13/20 14:19 06/13/20 14:19 06/13/20 14:19 06/13/20 14:19 06/13/20 14:19 Intake & Output 06/14/20 06/15/20 06/16/20 06:59 06:59 06:59 Intake Total 800 Balance 800 General appearance: PRESENT: no acute distress, mild distress Head exam: PRESENT: atraumatic, normocephalic Eye exam: PRESENT: EOMI, PERRLA Mouth exam: PRESENT: moist Neck exam: PRESENT: full ROM Respiratory exam: PRESENT: clear to auscultation roya, symmetrical, unlabored Cardiovascular exam: PRESENT: RRR, +S1, +S2 Pulses: PRESENT: +2 pedal pulses bilateral GI/Abdominal exam: PRESENT: normal bowel sounds, soft. ABSENT: rebound, tendern ess Extremities exam: PRESENT: full ROM Musculoskeletal exam: PRESENT: full ROM Neurological exam: PRESENT: alert, oriented to place, oriented to time, oriented to situation Psychiatric exam: PRESENT: normal mood Skin exam: PRESENT: normal color Results Laboratory Results: WBC 9.3 10^3/uL (4.0-10.5) 06/13/20 04:09 RBC 3.76 10^6/uL (3.72-5.28) 06/13/20 04:09 Hgb 11.2 g/dL (12.0-15.5) L 06/13/20 04:09 Hct 32.2 % (36.0-47.0) L 06/13/20 04:09 MCV 86 fl (80-97) 06/13/20 04:09 MCH 29.7 pg (27.0-33.4) 06/13/20 04:09 MCHC 34.7 g/dL (32.0-36.0) 06/13/20 04:09 RDW 13.0 % (11.5-14.0) 06/13/20 04:09 Plt Count 350 10^3/uL (150-450) 06/13/20 04:09 Lymph % (Auto) 15.7 % (13-45) 06/12/20 11:09 [place] % (Auto) 3.4 % (3-13) 06/12/20 11:09 Eos % (Auto) 0.6 % (0-6) 06/12/20 11:09 Baso % (Auto) 1.0 % (0-2) 06/12/20 11:09 Absolute Neuts (auto) 9.4 10^3/uL (1.7-8.2) H 06/12/20 11:09 Absolute Lymphs (auto) 1.9 10^3/uL (0.5-4.7) 06/12/20 11:09 Absolute Monos (auto) 0.4 10^3/uL (0.1-1.4) 06/12/20 11:09 Absolute Eos (auto) 0.1 10^3/uL (0.0-0.6) 06/12/20 11:09 Absolute Basos (auto) 0.1 10^3/uL (0.0-0.2) 06/12/20 11:09 Seg Neutrophils % 79.3 % (42-78) H 06/12/20 11:09 PT 12.1 SEC (11.4-15.4) 06/12/20 06:51 INR 0.87 06/12/20 06:51 APTT 35.0 SEC (23.5-35.8) 06/12/20 06:51 Sodium 138.5 mmol/L (137-145) 06/13/20 04:09 Potassium 4.4 mmol/L (3.6-5.0) 06/13/20 04:09 Chloride 107 mmol/L (98-107) 06/13/20 04:09 Carbon Dioxide 24 mmol/L (22-30) 06/13/20 04:09 Anion Gap 8 (5-19) 06/13/20 04:09 BUN 10 mg/dL (7-20) 06/13/20 04:09 Creatinine 0.48 mg/dL (0.52-1.25) L 06/13/20 04:09 Est GFR ( Amer) > 60 (>60) 06/13/20 04:09 Est GFR (MDRD) Non-Af > 60 (>60) 06/13/20 04:09 Glucose 115 mg/dL (75-110) H 06/13/20 04:09 POC Glucose 102 mg/dL (70-110) 06/13/20 11:49 Calcium 8.6 mg/dL (8.4-10.2) 06/13/20 04:09 Phosphorus 3.9 mg/dL (2.5-4.5) 06/13/20 04:09 Magnesium 1.8 mg/dL (1.6-2.3) 06/13/20 04:09 Total Bilirubin 0.3 mg/dL (0.2-1.3) 06/12/20 06:51 Direct Bilirubin 0.2 mg/dL (0.0-0.4) 06/12/20 06:51 Neonat Total Bilirubin Not Reportable 06/12/20 06:51 Neonat Direct Bilirubin Not Reportable 06/12/20 06:51 Neonat Indirect Bili Not Reportable 06/12/20 06:51 AST 27 U/L (14-36) 01 06:51 ALT 28 U/L (<35) 06/12/20 06:51 Alkaline Phosphatase 80 U/L (38-126) 06/12/20 06:51 Troponin I < 0.012 ng/mL 06/12/20 06:51 Total Protein 7.3 g/dL (6.3-8.2) 06/12/20 06:51 Albumin 3.8 g/dL (3.5-5.0) 06/12/20 06:51 TSH 1.37 uIU/mL (0.47-4.68) 06/13/20 04:09 Mateus Human Metapneumo PCR NOT DETECTED (NOT DETECT) 06/12/20 10:59 Adenovirus (PCR) NOT DETECTED (NOT DETECT) 06/12/20 10:59 B. pertussis DNA (PCR) NOT DETECTED (NOT DETECT) 06/12/20 10:59 B.parapertussis DNA PCR NOT DETECTED (NOT DETECT) 06/12/20 10:59 C. pneumoniae DNA (PCR) NOT DETECTED (NOT DETECT) 06/12/20 10:59 Coronavirus OC43 (PCR) NOT DETECTED (NOT DETECT) 06/12/20 10:59 Coronavirus HKU1 (PCR) NOT DETECTED (NOT DETECT) 06/12/20 10:59 Coronavirus 229E (PCR) NOT DETECTED (NOT DETECT) 06/12/20 10:59 Coronavirus NL63 (PCR) NOT DETECTED (NOT DETECT) 06/12/20 10:59 Influenza A (H1) PCR NOT DETECTED (NOT DETECT) 06/12/20 10:59 Influ A (H1N1/09) PCR NOT DETECTED (NOT DETECT) 06/12/20 10:59 Influenza A (H3) PCR NOT DETECTED (NOT DETECT) 06/12/20 10:59 Influenza Type A (PCR) NOT DETECTED (NOT DETECT) 06/12/20 10:59 Influenza Type B (PCR) NOT DETECTED (NOT DETECT) 06/12/20 10:59 M. pneumoniae (PCR) NOT DETECTED (NOT DETECT) 06/12/20 10:59 Parainfluenza 1 (PCR) NOT DETECTED (NOT DETECT) 06/12/20 10:59 Parainfluenza 2 (PCR) NOT DETECTED (NOT DETECT) 06/12/20 10:59 Parainfluenza 3 (PCR) NOT DETECTED (NOT DETECT) 06/12/20 10:59 Parainfluenza 4 (PCR) NOT DETECTED (NOT DETECT) 06/12/20 10:59 RSV (PCR) NOT DETECTED (NOT DETECT) 06/12/20 10:59 Entero/Rhino (PCR) NOT DETECTED (NOT DETECT) 06/12/20 10:59 SARS-CoV-2 (PCR) NOT DETECTED (NOT DETECT) 06/12/20 10:59 Blood Type A POSITIVE 06/12/20 06:51 Antibody Screen NEGATIVE 06/12/20 06:51 06/12/20 06:51 Troponin I < 0.012 Impressions: Abdomen/Pelvis CTA 06/12/20 07:07 IMPRESSION: No CT evidence of active GI bleeding Sigmoid colon diverticulosis without CT signs of acute diverticulitis Post cholecystectomy appendectomy and hysterectomy. Chest X-Ray 06/12/20 07:10 IMPRESSION: NO ACUTE RADIOGRAPHIC FINDING IN THE CHEST. Plan Goals: - ff. up with PCP Stroke Is this a Stroke Patient?: No Acute Heart Failure Is this a Heart Failure Patient?: No
== END 2020-06-13 15:20 | disposition home or self-care (01) ==
LOC: ER 05:58 → INTOOBSV 11:47 → EH 11:47 → 5 15:09
PROVIDERS: ADMIT Internal Medicine; ATTEND Internal Medicine
DX: K92.1 Melena (principal); K57.31 Diverticulosis of large intestine without perforation or abscess with bleeding; R55 Syncope and collapse; E11.9 Type 2 diabetes mellitus without complications; F17.200 Nicotine dependence, unspecified, uncomplicated; E66.9 Obesity, unspecified; K62.1 Rectal polyp; K59.09 Other constipation; R00.0 Tachycardia, unspecified; I95.9 Hypotension, unspecified; I10 Essential (primary) hypertension; Z68.39 Body mass index [BMI] 39.0-39.9, adult; M19.90 Unspecified osteoarthritis, unspecified site; Z90.49 Acquired absence of other specified parts of digestive tract; Z90.710 Acquired absence of both cervix and uterus; Z79.899 Other long term (current) drug therapy; Z79.84 Long term (current) use of oral hypoglycemic drugs; Z79.1 Long term (current) use of non-steroidal anti-inflammatories (NSAID); Z01.812 Encounter for preprocedural laboratory examination; Z20.828 Contact with and (suspected) exposure to other viral communicable diseases; Z79.82 Long term (current) use of aspirin; Z87.19 Personal history of other diseases of the digestive system
CPT/HCPCS: 93005; 99285; 96360; 96361; 45385; 86900; 86901; 36415 ×2; 86850; 82962 ×2; 83735; 84100; 84443; 85025; 85027; 85610; 85730; 0202U ×23; 80048; 80053; 84484; 71045; 74174; 93010; 00811; G0378 ×3; A9270 ×3; J3490; J2405; J7030 ×2; J2704